=== PATIENT | male | born 1930 | race Caucasian/White ===

== ENCOUNTER → 2016-09-20 | Day surgery (SDC) | payer OTHER ==
[~2016-09-20] VITALS: Ht 188 cm; Wt 76.9 kg
[~2016-09-20] MED LIST: *LABETALOL HCL 100 MG/20 ML VIAL PERIprocedural Use ONLY ONE; ACETAMINOPHEN 1000 MG/100 ML VIAL IV ONE; ASPI81CH CHEW; BETAMETHASONE SOD PHOS/ACETATE SUSP 30 MG/5 ML VIAL ONE; BUPIVACAINE/EPINEPHRINE 0.25% 50 ML VIAL INFIL ONE; BUPIVACAINE/EPINEPHRINE 0.25% PF 10 ML VIAL ONE; CARV3.12 PO; CHLORHEXIDINE GLUCONATE 2 % 1 PACK (2 CLOTHS) TOPICAL PRN; DEXAMETHASONE SOD PHOS 4 MG/ML VIAL ONE; DO NOT ADM ANY ANTICOAGULANT DRUGS PRN; FAMO20TA2 PO; FAMOTIDINE 20 MG/2 ML VIAL ONE; GELATIN 12 MM/7 MM FOAM ONE; GENTAMICIN SULFATE 80 MG/2 ML VIAL IRRIGATION ONE; GENTAMICIN SULFATE 80 MG/2 ML VIAL ONE; GLIP2.5T6 PO; GLIP5TAB8 PO; INSULIN HUMAN REGULAR 1,000 UNITS/10 ML VIAL SQ PRN; LACTATED RINGER'S 1000 ML INJ 1,000 ML IV ONE; LACTATED RINGER'S 1000 ML IV PRN; LISI-363 PO; MELA5TAB15 PO; METOPROLOL TARTRATE 25 MG TAB PO PRN; MIDAZOLAM HCL 2 MG/2 ML VIAL ONE; MIRT30TA PO; MIRTA15 PO; MORPHINE SULFATE 4 MG/ML INJ IV PRN; MULTTAB67 PO; NEOSTIGMINE 3 MG/3 ML SYR IV ONE; OXYC-392 PO; OXYC-395 PO; POVIDONE IODINE 5% (ANTISEPSIS KIT) 4 APPLICATIONS EACH NARE PRN; POVIDONE IODINE 7.5% SCRUB 118 ML BOTTLE TOPICAL SCH; PRED10 PO; PROPOFOL 200 MG/20 ML AMP IV ONE; SODIUM CHLORID 0.9% 500 ML IV PRN; TIZA4CAP3 PO; VITA100036 PO; VITATAB25 PO; ceFAZolin 2 GM PREMIX 50 ML IV SCH; ePHEDrine/NS 25 MG/5 ML SYR IV ONE; fentaNYL CITRATE 250 MCG/5 ML AMP ONE; oxyCODONE/ACETAMINOPHEN 7.5 MG/325 MG TAB PO PRN
[2016-09-20 09:00] VITALS: BP 224/97; PULSE 68; RESP 18; TEMP 98.4; O2SAT 96
--- NOTE | 2016-09-20 09:32 | MH ---
cc: TESSY SILVESTRE DATE OF ADMISSION 09/20/2016 ADMISSION DIAGNOSIS Lumbar spinal stenosis HISTORY This is an 86-year-old male with significant back, hip and leg pain. Investigative studies shows evidence of high-grade spinal stenosis L4-5. The patient has left greater than right lateral recess stenosis. He is having radiating leg pain. He presents for surgical treatment. PAST MEDICAL HISTORY, SOCIAL HISTORY, FAMILY HISTORY, REVIEW OF SYSTEMS See attached notes. PHYSICAL EXAMINATION An 86-year male in moderate distress with his back, hip and leg. HEENT: Normocephalic, atraumatic. Pupils equal, round, reactive to light and accommodation. Extraocular motions intact. NECK: Supple. CHEST: Clear. HEART: Regular rate and rhythm. ABDOMEN: Soft and nontender with normoactive bowel sounds. MUSCULOSKELETAL: Thoracolumbar spine restricted motion, pain with range of motion. Adzytaem-mlo-ccyhm is positive on the left and negative on the right. Motor examination shows weakness on the left extensor halluces longus. IMPRESSION Lumbar spinal stenosis L4-5. PLAN Bilateral lumbar laminectomy from the left L4, L5, lateral recess decompression, use of dilation port microscope. CONSENT The risks for surgery including infection, bleeding, loss of motion, continued pain, need for further surgery, neurologic and vascular injury. The patient understands these issues and wishes to press on with surgery as outlined above. MD EAMON Curry/THOMAS /10:57 PM /9:26 AM
--- NOTE | 2016-09-20 12:38 | PD.OP ---
cc: Destin Linton MD Operative Report Date of Surgery: Sep 20, 2016 Preoperative Diagnosis: Lumbar spinal stenosis, L4 5, bilateral Left greater than right lumbosacral radiculopathy Postoperative Diagnosis: Same Procedure: Bilateral laminectomy with bilateral lateral recess decompression from the left L4, L5. Use of dilation port and microscope Anesthesia: Gen. Surgeon: Destin Linton Hematology Supervisor(s): DARNELL Marshall Operation and Findings: EBL: 50 cc INDICATION: Patient is an 86-year-old male with severe left hip and leg pain. He has mild to moderate right leg pain. Investigative studies shows evidence of severe spinal stenosis at L4 5. Despite extensive conservative care, he continues to be painful and symptomatically with weakness. He presents for surgical treatment. NOTE: Samantha Marshall PA-C was present for the entire surgical procedure as my wheelchair van operator first responder. In my medical opinion her skill and care was necessary for the proper management of this patient. PROCEDURE: The patient was brought to the operating room and anesthetized in the supine position. The patient was rolled to a prone position on a Mitchell frame on a Callum table. All pressure points were protected in the back was scrubbed with alcohol followed by Hibiclens followed by ChloraPrep and draped sterilely. A timeout was done and antibiotics were given. AP and lateral radiographic images were used to identify the proper levels and perform skin markings. We started from the left side at the L4 5 level. A paramedian incision was made and an off-midline fascial incision was made. A dilating system was placed down to the interlaminar space and held provisionally to the side of the table. The microscope was brought into the field. A high-speed bur under the microscope was used to perform a bilateral laminectomy from that side. A lateral recess decompression bilaterally was accomplished using straight and angled Kerrison punches. A partial medial facetectomy was accomplished. The crossing and exiting nerve roots were completely decompressed. The wound was irrigated copiously. A small piece of Gelfoam with Celestone was placed into the epidural space. Hemostasis was controlled. The deep fascia was approximated with interrupted 0 Vicryl suture subcutaneous suture with 2-0 Vicryl suture and skin with running intradermal 3-0 Vicryl followed by Dermabond. A field block with local anesthesia was utilized. A sterile dressing was applied. The sponge count and needle counts and instrument counts were all correct. The patient tolerated the procedure well as taken to the recovery room in satisfactory condition. FINDINGS: There was evidence of severe spinal stenosis. Studies showed a high- grade stenosis on the right than on the left but clinically it was worse on the left. The crossing left L5 nerve root was trapped between hypertrophy and overgrowth of the facet joint and bulging of the disc at that level. The decompression was felt be very satisfactory. There was no complication that was appreciated. Destin Linton MD Sep 20, 2016 12:37
[2016-09-20 14:55] VITALS: BP 160/85; PULSE 82; RESP 18; TEMP 97.5; O2SAT 97
--- NOTE | 2016-09-20 17:10 | RADRPT ---
EXAM DATE/TIME: 09/20/2016 11:29 [facility] COMPARISON: No previous studies available for comparison. INDICATIONS : L4-L5 lumbar laminectomy. Level localization. MEDICAL HISTORY : None. SURGICAL HISTORY : None. ENCOUNTER: Initial ACUITY: 1 day PAIN SCORE: Non-responsive. LOCATION: Lumbar spine. FINDINGS: A single lateral view of the lower lumbar region was performed digitally using C-arm with localizatio n probe present posteriorly. CONCLUSION: Intraoperative images. Wes Carreon MD on September 20, 2016 at 17:07 Board Certified Radiologist. This report was verified electronically.
== END | disposition home or self-care (01) ==
LOC: HSDC 08:10
PROVIDERS: ATTEND Orthopaedic Surgery Orthopaedic Surgery of the Spine
DX: M48.06 Spinal stenosis, lumbar region (principal); M51.16 Intervertebral disc disorders with radiculopathy, lumbar region; I10 Essential (primary) hypertension; E11.40 Type 2 diabetes mellitus with diabetic neuropathy, unspecified; M19.90 Unspecified osteoarthritis, unspecified site; Z79.82 Long term (current) use of aspirin; Z85.46 Personal history of malignant neoplasm of prostate; Z79.84 Long term (current) use of oral hypoglycemic drugs; Z95.820 Peripheral vascular angioplasty status with implants and grafts
CPT/HCPCS: 63047; 72020; 76000; 82948; J0131; J0690; J0702; J1100; J1580; J2250; J2710; J3010; J7120